=== PATIENT | female | born 1995 | race Hispanic/Latino ===

== ENCOUNTER 2021-02-11 10:03 | Inpatient (IN) | payer OTHER ==
[~2021-02-11] VITALS: Ht 170.2 cm; Wt 68.0 kg
[2021-02-11 11:10] LABS: CREATININE 0.7 mg/dL (0.5-1.5); POTASSIUM 4.2 mmol/L (3.5-5.1)
[2021-02-11 11:13] LABS: BASOPHILS % (AUTO) 0.2 % (0.0-5.0); EOSINOPHILS % (AUTO) 0.6 % (0.0-8.0); HEMATOCRIT 39.1 % (36-48); LYMPHOCYTES % (AUTO) 11.8 % (21.0-51.0); MEAN CORPUSCULAR HEMOGLOBIN 28.4 pg (27.0-33.0); MEAN CORPUSCULAR HGB CONC 33.8 g/dL (32.0-36.0); MEAN CORPUSCULAR VOLUME 84.3 fL (79-99); MONOCYTES % (AUTO) 5.1 % (3.0-13.0); NEUTROPHILS % (AUTO) 81.8 % (40.0-77.0); PLATELET COUNT (AUTO) 284 K/uL (130-400); RED BLOOD CELL COUNT(AUTO) 4.64 MIL/uL (4.00-5.50); RED CELL DISTRIBUTION WIDTH 11.6 % (11.0-15.5); WHITE BLOOD COUNT (AUTO) 10.5 K/uL (4.8-10.8)
[2021-02-11 11:14] LABS: ALBUMIN 4.8 g/dL (3.5-5.0); BILIRUBIN,TOTAL 0.5 mg/dL (0.2-1.0); TOTAL PROTEIN, SERUM 9.2 g/dL (6.0-8.3)
[2021-02-11] MEDS ORDERED: VANCOMYCIN 1GM+NS 250ML 250 ML IV ONE (11:29)
[2021-02-11] MEDS ORDERED: ACETAMINOPHEN 325 MG TAB PO PRN (13:00)
[2021-02-11] MEDS ORDERED: ONDANSETRON HCL 4 MG/2 ML VIAL IVP PRN (13:15)
[2021-02-11] MEDS ORDERED: HYDROMORPHONE HCL 0.5 MG/0.5 ML ML IVP PRN (13:15)
[2021-02-11] MEDS ORDERED: ZOSYN 3.375GM+NS 50ML 50 ML IV SCH (13:15)
[2021-02-11] MEDS ORDERED: VANCOMYCIN PROTOCOL PER PHARMACY IV SCH (13:15)
[2021-02-11 14:04] LABS: APPEARANCE,URINE Clear (CLEAR); BILIRUBIN,URINE Negative (NEGATIVE); COLOR,URINE Dark Yellow (YELLOW); GLUCOSE, URINE (UA) Negative (NEGATIVE); KETONES,URINE >=80 mg/dL (NEGATIVE); LEUKOCYTE ESTERASE ,URINE Trace (NEGATIVE); NITRATE,URINE Negative (NEGATIVE); OCCULT BLOOD,URINE Negative (NEGATIVE); PH,URINE 5.5 (5.0-8.0); PROTEIN,URINE Negative (NEGATIVE)
[2021-02-11 14:15] LABS: BACTERIA,URINE Few /HPF (None Seen); SQUAMOUS EPITHELIAL CELL,UR Rare /HPF (0-2)
[2021-02-11] MEDS ORDERED: LEVOFLOXACIN 500 MG/D5W 100 ML 100 ML ONE (18:01)
[2021-02-12] VITALS (19 sets, daily range): BP systolic 98–135; BP diastolic 54–83
[2021-02-12] MEDS: VANCOMYCIN 1GM+NS 250ML 250 ML IV SCH ×2 (02:00→13:49)
[2021-02-12] MEDS ORDERED: BUPIVACAINE/PF 0.5% 30ML VIAL ONE (06:51)
[2021-02-12] MEDS ORDERED: LIDOCAINE HCL 1% 20 ML VIAL ONE (06:51)
[2021-02-12] MEDS ORDERED: MIDAZOLAM HCL 1 MG/ML 2ML VIAL ONE ×2 (07:44→08:08)
[2021-02-12] MEDS ORDERED: FENTANYL CITRATE PF 50 MCG/1 ML 2ML VIAL ONE ×2 (07:44→08:08)
[2021-02-12] MEDS ORDERED: PROPOFOL 10 MG/ML 20ML VIAL IV ONE (08:21)
[2021-02-12] MEDS ORDERED: HYDROMORPHONE HCL 0.5 MG/0.5 ML ML IVP PRN (09:45)
[2021-02-12] MEDS: LEVOFLOXACIN 500 MG/D5W 100 ML 100 ML IV SCH (10:43)
[2021-02-12] MEDS: PANTOPRAZOLE SODIUM 40 MG TABLET.DR PO SCH (10:43)
[2021-02-12] MEDS: MORPHINE SULFATE 2 MG/ML 1ML SYG IVP PRN (10:46)
[2021-02-12] MEDS ORDERED: NAPROSYN PO (11:30)
[2021-02-13] MEDS: VANCOMYCIN 1GM+NS 250ML 250 ML IV SCH (03:12)
[2021-02-13] MEDS: MORPHINE SULFATE 2 MG/ML 1ML SYG IVP PRN (06:08)
[2021-02-13 08:47] VITALS: BP 129/87
[2021-02-13] MEDS: PANTOPRAZOLE SODIUM 40 MG TABLET.DR PO SCH (11:06)
[2021-02-13] MEDS: LEVOFLOXACIN 500 MG/D5W 100 ML 100 ML IV SCH (11:06)
[2021-02-13 13:26] VITALS: BP 112/66
[2021-02-13] MEDS ORDERED: COMPOUND IV REFRIGERATED 1 EACH IVSOLN MISC PRN (14:30)
[2021-02-13] MEDS: VANCOMYCIN 1.25 GM in SODIUM CHLORIDE 0.9% 250 ML IV SCH (15:04)
[2021-02-13 16:00] VITALS: BP 98/53
[2021-02-13 19:16] VITALS: BP 95/59
[2021-02-13 23:30] VITALS: BP 95/52
[2021-02-14] MEDS: VANCOMYCIN 1.25 GM in SODIUM CHLORIDE 0.9% 250 ML IV SCH ×2 (02:28→14:32)
[2021-02-14 03:37] VITALS: BP 97/52
[2021-02-14 04:31] LABS: BASOPHILS % (AUTO) 0.6 % (0.0-5.0); EOSINOPHILS % (AUTO) 2.6 % (0.0-8.0); HEMATOCRIT 30.7 % (36-48); LYMPHOCYTES % (AUTO) 29.8 % (21.0-51.0); MEAN CORPUSCULAR HEMOGLOBIN 29.7 pg (27.0-33.0); MEAN CORPUSCULAR HGB CONC 35.2 g/dL (32.0-36.0); MEAN CORPUSCULAR VOLUME 84.3 fL (79-99); NEUTROPHILS % (AUTO) 59.4 % (40.0-77.0); PLATELET COUNT (AUTO) 237 K/uL (130-400); RED BLOOD CELL COUNT(AUTO) 3.64 MIL/uL (4.00-5.50); RED CELL DISTRIBUTION WIDTH 11.6 % (11.0-15.5); WHITE BLOOD COUNT (AUTO) 6.6 K/uL (4.8-10.8)
[2021-02-14 04:36] LABS: CREATININE 0.7 mg/dL (0.5-1.5); POTASSIUM 3.9 mmol/L (3.5-5.1)
[2021-02-14 08:00] VITALS: BP 111/62
[2021-02-14] MEDS: LEVOFLOXACIN 500 MG/D5W 100 ML 100 ML IV SCH (09:31)
[2021-02-14] MEDS: PANTOPRAZOLE SODIUM 40 MG TABLET.DR PO SCH (09:31)
[2021-02-14 12:00] VITALS: BP 107/59
[2021-02-14 16:00] VITALS: BP 104/65
[2021-02-14 20:12] VITALS: BP 103/59
[2021-02-15] VITALS (7 sets, daily range): BP systolic 94–101; BP diastolic 49–62
[2021-02-15] MEDS: VANCOMYCIN 1.25 GM in SODIUM CHLORIDE 0.9% 250 ML IV SCH ×2 (00:52→15:26)
[2021-02-15 03:45] LABS: HEMATOCRIT 29.6 % (36-48); MEAN CORPUSCULAR HEMOGLOBIN 28.9 pg (27.0-33.0); MEAN CORPUSCULAR HGB CONC 34.5 g/dL (32.0-36.0); MEAN CORPUSCULAR VOLUME 83.9 fL (79-99); RED BLOOD CELL COUNT(AUTO) 3.53 MIL/uL (4.00-5.50); RED CELL DISTRIBUTION WIDTH 11.4 % (11.0-15.5); WHITE BLOOD COUNT (AUTO) 6.6 K/uL (4.8-10.8)
[2021-02-15 03:55] LABS: CREATININE 0.6 mg/dL (0.5-1.5); POTASSIUM 3.5 mmol/L (3.5-5.1)
[2021-02-15] MEDS: LEVOFLOXACIN 500 MG/D5W 100 ML 100 ML IV SCH (10:39)
[2021-02-15] MEDS: PANTOPRAZOLE SODIUM 40 MG TABLET.DR PO SCH (10:39)
[2021-02-16] MEDS: VANCOMYCIN 1.25 GM in SODIUM CHLORIDE 0.9% 250 ML IV SCH ×2 (01:42→14:00)
[2021-02-16 04:05] VITALS: BP 94/49
[2021-02-16 08:11] VITALS: BP 113/62
[2021-02-16] MEDS: LEVOFLOXACIN 500 MG/D5W 100 ML 100 ML IV SCH (08:46)
[2021-02-16] MEDS: PANTOPRAZOLE SODIUM 40 MG TABLET.DR PO SCH (08:46)
[2021-02-16 11:44] VITALS: BP 106/61
[2021-02-16 16:00] VITALS: BP 93/55
[2021-02-16 19:37] VITALS: BP 98/57
[2021-02-16 23:15] VITALS: BP 91/48
[2021-02-17] MEDS: VANCOMYCIN 1.25 GM in SODIUM CHLORIDE 0.9% 250 ML IV SCH (01:55)
[2021-02-17 04:32] VITALS: BP 92/50
[2021-02-17 07:30] VITALS: BP 98/62
[2021-02-17] MEDS: LEVOFLOXACIN 500 MG/D5W 100 ML 100 ML IV SCH (09:45)
[2021-02-17] MEDS: PANTOPRAZOLE SODIUM 40 MG TABLET.DR PO SCH (09:52)
[2021-02-17] MEDS ORDERED: LEVOFLOXACIN 500 MG TABLET ONE (13:49)
[2021-02-17] MEDS ORDERED: LEVOFLOXACIN 500 MG TABLET PO SCH (14:00)
== END 2021-02-17 13:55 | disposition home or self-care (01) | DRG 623 ==
LOC: EDH 10:03 → EDHIP 12:20 → 4AH 02-12 09:11 → 3CH 02-16 11:15
PROVIDERS: ADMIT Internal Medicine Nephrology; ATTEND Internal Medicine Nephrology
PROC: 0JBQ0ZZ Excision of Right Foot Subcutaneous Tissue and Fascia, Open Approach (ICD-10-PCS; principal; 2021-02-12 07:45)
DX: E11.621 Type 2 diabetes mellitus with foot ulcer (principal); L03.115 Cellulitis of right lower limb; E87.1 Hypo-osmolality and hyponatremia; L02.611 Cutaneous abscess of right foot; Z88.0 Allergy status to penicillin; F41.9 Anxiety disorder, unspecified; L97.519 Non-pressure chronic ulcer of other part of right foot with unspecified severity
CPT/HCPCS: 36415; 73630; 73718; 80048; 80053; 80202; 81001; 81025; 85025; 85027; 87040; 87070; 87076; 87077; 87186; 87205; 97039; G0378; J1956; J2250; J2704; J3010; J3370; J3490; J7050; J7120